=== PATIENT | female | born 1980 | race Caucasian/White ===

== ENCOUNTER 2024-03-02 01:19 | Emergency (ER) | payer SELFPAY ==
[2024-03-02 01:23] VITALS: BMI 24.4
[2024-03-02 01:25] VITALS: BP 102/61
[2024-03-02 01:37] LABS: % Basophils 0.8 % (0-2); % Eosinophils 1.2 % (0-6); % Immature Granulocytes 0.3 % (0-0.5); % Lymphocytes 37.2 % (20.5-51.1); % Monocytes 7.1 % (1.7-9.3); % Neutrophils 53.4 % (42.2-75.2); Absolute Basophils 0.1 10^3/uL (0-0.2); Absolute Eosinophils 0.1 10^3/uL (0-0.7); Absolute Lymphocytes 2.8 10^3/uL (1.2-3.4); Absolute Monocytes 0.5 10^3/uL (0.1-0.6); Absolute Neutrophils 4.1 10^3/uL (1.4-6.5); Hematocrit 37.8 % (37.0-47.0); Hemoglobin 12.9 g/dL (12.0-16.0); Mean Corp Hgb Conc. 34.1 g/dL (33.0-37.0); Mean Corpuscular Hgb 27.2 pg (27.0-31.0); Mean Corpuscular Volume 79.7 fL (81.0-99.0); Mean Platelet Volume 10.8 fL (7.4-10.4); Nucleated Red Blood Cells % 0 %; Platelet Count 229 10^3/uL (130-400); Red Blood Cell Count 4.74 10^6/uL (4.20-5.40); Red Cell Dist. Width 13.6 % (11.5-14.5); White Blood Cell Count 7.6 10^3/uL (4.8-10.8)
[2024-03-02 01:51] LABS: HCG, Serum Qualitative Screen Negative
[2024-03-02 01:52] LABS: COVID-19 Antigen Negative (Negative)
[2024-03-02 01:55] LABS: ALT (SGPT) 16 U/L (0-35); AST (SGOT) 21 U/L (14-36); Albumin 4.5 g/dl (3.5-5.0); Alkaline Phosphatase 77 U/L (38-126); Blood Urea Nitrogen 16 mg/dl (7-17); Calcium 9.5 mg/dl (8.4-10.2); Carbon Dioxide 26 mmol/L (22-30); Chloride 104 mmol/L (98-107); Estimated Creatinine Clearance 69 ml/min; Glucose 110 mg/dl (70-99); Sodium 139 mmol/L (135-145); Total Bilirubin 0.3 mg/dl (0.2-1.3); Total Protein 6.9 g/dl (6.3-8.2); eGFR > 60.00
[2024-03-02 02:05] LABS: Troponin I < 0.012 ng/ml
[2024-03-02 02:14] VITALS: BP 105/61
[2024-03-02 02:16] LABS: Urine Albumin Trace (Neg - Trace); Urine Bilirubin Negative (Negative); Urine Character Clear (Clear); Urine Color Yellow; Urine Glucose Negative (Negative); Urine Ketone Negative (Negative); Urine Leukocyte 1+ (Negative); Urine Nitrite Negative (Negative); Urine Occult Blood Negative (Negative); Urine Specific Gravity 1.015 (<1.030); Urine Urobilinogen Negative (Neg - 1+); Urine pH 6.5 (5.0-9.0)
[2024-03-02 02:29] LABS: Urine Amorphous Seen; Urine Mucus Many; Urine Squamous Cell >30 /LPF (Few)
[2024-03-02 02:30] LABS: Urine Bacteria Many (Negative); Urine Red Blood Cell 0-2 /HPF (0-2); Urine White Cell 21-25 /HPF (0-5)
[2024-03-02 03:00] VITALS: BP 113/62
[2024-03-02 04:00] VITALS: BP 108/61
--- NOTE | 2024-03-02 04:03 | ED.GENMED ---
History of Present Illness
General
Chief Complaint: Fainting Sensation
Source: patient, ambulance crew and previous hospital records (ED visit 2021 for somewhat similar syncopal event after attempting to pass a bowel movement.)
Exam Limitations: none
Time Seen by Provider: 03/02/24 03:55
Nursing documentation reviewed up to this point in time: agreed with
History of Present Illness
History of Present Illness:
This is a 43-year-old woman with no significant past medical history admits to not feeling well throughout the day yesterday, nauseous without vomiting. Poor oral intake throughout the day yesterday. She got up out of bed to go to the bathroom
feeling that she needed to pass a bowel movement. She did not pass a bowel movement but began to feels lightheaded when leaving the bathroom and proceeded to pass out, caught by her daughter and sister. Patient was noted to be pale and diaphoretic
during this episode. She did not strike her head, denies injury. She was not incontinent of bowel or bladder. She denies chest pain or palpitations. No headache.
Similar syncopal event happened June 2022 after attempting to pass a bowel movement.
She has not had a fever or chills. No abdominal pain. No dysuria urgency or hematuria.
She denies risk of , last menstrual period normal and on time, February 14.
She arrives via EMS. Prehospital Accu-Chek reportedly 63. Was given oral glucose prehospital.
Past History
Past History
ED Past Medical History: None
ED Past Surgical History:
Social History
Tobacco: Non-smoker
Alcohol: None
Personal: Single
Living: with family
Employment: Employed
Family History
Family History: Other (Noncontributory)
Phy Exam
Physical Exam
Physical Exam:
GENERAL: 43-year-old woman appears her stated age, awake and alert, pleasant, appears in no acute distress. Daughters are accompanying.
EYE: anicteric
NECK: Supple, nontender, no meningismus, no significant adenopathy.
ENT: posterior pharynx is clear, oral mucosa is moist.
CARDIAC: Regular rate and rhythm. no murmur.
LUNGS: Clear breath sounds bilaterally, no acute respiratory distress, no wheezes/rales/rhonchi
ABDOMEN: Soft, nondistended, without focal tenderness, no r/g, no cvat. normoactive BS.
NEUROLOGICAL: Alert and oriented x3, no focal neuro deficits.
SKIN: Warm and dry, normal color, skin intact. No rash.
MUSCULOSKELETAL: No C/C/E. peripheral pulses are full and equal b/l. No palpable tenderness.
PSYCH: Normal and appropriate interaction.
Course
Orders/Labs/Results
Orders:
Orders
03/02/24 01:22
Electrocardiogram (*1) Urgent
Reason for Study: Syncope
03/02/24 01:23
EKG- Treatment ONCE
Test Result ONCE
03/02/24 01:29
COVID-19 Antigen Urgent
Source: Nasal Swab
Complete Blood Count/With Diff Urgent
Comprehensive Metabolic Panel Urgent
HCG, Serum Qualitative Screen Urgent
Troponin I Urgent
03/02/24 02:11
Urinalysis Reflex To Culture Urgent
Date Specimen was Collected: 03/02/24
Time Specimen was Collected: 02:00
Urine Microscopic Reflex Cult Urgent
Urine Culture Urgent
KATHERINE Source: U
Specimen Description:
Date Specimen was Collected: 03/02/24
Time Specimen was Collected: 02:00
03/02/24 04:02
0.9% Sodium Chloride 1000 ml [Nss] 1,000 ml IV BOLUS
03/02/24 05:15
Encourage PO Hydration-Treatme ONCE
Abnormal Lab Results
03/02/24 03/02/24
0129 02:11
MCV 79.7 L fL
(81.0-99.0)
MPV 10.8 H fL
(7.4-10.4)
Glucose 110 H mg/dl
(70-99)
Leukocyte Esterase Rfl 1+ A
(Negative)
Urine WBC (Reflex) 21-25 A /HPF
(0-5)
Urine Bacteria (Reflex) Many A
(Negative)
03/02/24 01:29
03/02/24 01:29
Vital Signs
Initial and Last Documented VS:
Initial Vital Signs
Pulse Resp Pulse Ox
68 10 100
03/02/24 01:22 03/02/24 01:22 03/02/24 01:22
Last Documented Vital Signs
Temp Pulse Resp BP Pulse Ox
97.6 F 66 11 106/59 99
03/02/24 01:23 03/02/24 05:00 03/02/24 05:00 03/02/24 05:00 03/02/24 05:00
MDM/Problems Addressed
Differential Diagnosis Includes:
History and exam most consistent with vasovagal syncope.
Concern for viral gastroenteritis, viral syndrome, dehydration, electrolyte abnormality. Other consideration is cardiac arrhythmia.
Borderline hypotension noted initially at 102/61. Has improved to 113/62.
She is afebrile.
Monitor shows normal sinus rhythm without ectopy. EKG shows similar. No acute ST-T wave abnormalities.
Labs are unremarkable.
Urinalysis shows bacteria and WBCs but is a contaminated specimen with greater than 30 squamous epithelial cells. Patient has not had UTI symptoms. At this point we will hold off on antibiotic and instead await urine culture results.
Will give IV fluids and then plan to trial oral fluids.
At this point no indication for imaging.
*Pulse Oximetry
Patient hypoxic: no
*EKG
Interpreted by ED Provider?: Yes
Interpretation: normal
Comparison EKG: no changes (Unchanged from previous June 2022)
Rate: normal
Rhythm: sinus
[place]: normal axis
Interval: normal interval
QRS Pattern: normal QRS
Ischemia: no ischemia
*Financial Counselor Interpretation
Rate: normal
Interpretation: normal
Rhythm: sinus
*Critical Care Note
Total Time (30-74mins, 75-104mins- exclusive of procedures): Not Applicable
Update Note
Update Note:
03/02/2024 0604 AM
Patient feeling well.
Has ambulated to and from the bathroom with steady unaided gait.
No further vasovagal symptoms, no abdominal pain or nausea.
Tolerating oral fluids well.
Will discharge to home with prescription for Zofran for as needed nausea.
Recommend she stay well-hydrated on a daily basis, trial of soft bland foods.
Prompt follow-up with PCP for recheck.
ED Attending Note
-
Portions of this chart may have been created with voice recognition software.� Occasional wrong word or��sound alike� substitutions may have occurred due to the inherent limitations of voice recognition software.
Discharge Plan
Departure
Patient Disposition: Home (Routine Discharge)
Date of Disposition: 03/02/24
Time of Disposition: 06:07
Patient with high blood pressure during this ER visit?: No
Condition: Good
Discharge Problem:
Vasovagal syncope, Nausea and vomiting
Instructions: Syncope (Fainting) (DC), Nausea and vomiting in adults
Prescriptions:
New
ondansetron 4 mg tablet,disintegrating
4 mg PO QID PRN (Reason: nausea and vomiting) Qty: 20 0RF
Referrals:
Cristian Sepulveda MD [Family Provider] - Call in 1-3 days for appt
Interventions
Interventions:
*Risk Screen - Suicide Last Done: 03/02/24 01:23
*General Assessment Last Done: 03/02/24 01:23
*Neglect/Abuse Screening Last Done: 03/02/24 01:23
*ED COVID-19 Vaccine History Last Done: 03/02/24 01:23
ED- Cardiac Assessment Last Done: 03/02/24 01:43
ED- Neurological Assessment Last Done: 03/02/24 01:43
Discharge Date and Time
Print Language: KOSOVAN
[2024-03-02] MEDS: NSS 1000 IV (04:06)
[2024-03-02 05:00] VITALS: BP 106/59
[2024-03-02 06:00] VITALS: BP 102/53
== END 2024-03-02 06:39 | disposition home or self-care (01) ==
LOC: EMR 01:19
PROVIDERS: EMERGENCY PHYSICIAN Emergency Medicine; FAMILY PHYSICIAN Family Medicine
DX: R55 Syncope and collapse (principal); R11.2 Nausea with vomiting, unspecified; Z11.52 Encounter for screening for COVID-19; F41.9 Anxiety disorder, unspecified; F32.A Depression, unspecified
CPT/HCPCS: 99284; 96360; 80053; 81003; 81015; 84484; 84703; 85025; 87086; 87811; 93005